=== PATIENT | female | born 1965 | race Caucasian/White ===

== ENCOUNTER 2019-07-24 06:43 | Emergency (ER) | payer BC ==
[~2019-07-24] VITALS: Ht 165.1 cm; Wt 67.8 kg
[2019-07-24 07:46] VITALS: BP 116/74
== END 2019-07-24 07:50 | disposition home or self-care (01) ==
LOC: ER 06:43
DX: M79.671 Pain in right foot (principal); M79.672 Pain in left foot; E78.00 Pure hypercholesterolemia, unspecified; E03.9 Hypothyroidism, unspecified
CPT/HCPCS: 73630; 99284

== ENCOUNTER 2023-01-03 15:33 | Outpatient (CLI) | payer BC | END 2023-01-03 23:59 | disposition home or self-care (01) | LOC: RAD 15:33 | PROVIDERS: ATTEND Nurse Practitioner Family | DX: R40.4 Transient alteration of awareness (principal) | CPT/HCPCS: 95816 ==

== ENCOUNTER 2023-09-09 07:39 | Emergency (ER) | payer BC ==
[~2023-09-09] VITALS: Ht 165.1 cm; Wt 68.2 kg
[2023-09-09 07:48] VITALS: TEMP 97.6
[2023-09-09] MEDS ORDERED: morphine 4 MG/ML inj SYRINge IV ONE (09:00)
[2023-09-09 09:26] LABS: BASOPHILS % (AUTO) 0.5 % (0-1); EOSINOPHILS # (AUTO) 0.2 X10'3 (0-0.9); EOSINOPHILS % (AUTO) 2.6 % (0-6); HEMATOCRIT 39.7 % (35.0-45.0); HEMOGLOBIN 13.7 g/dl (12.0-16.0); LYMPHOCYTES # (AUTO) 1.9 X10'3 (1.1-4.8); LYMPHOCYTES % (AUTO) 22.4 % (21-51); MEAN CORPUSCULAR HEMOGLOBIN 31.6 PG (27.0-31.0); MEAN CORPUSCULAR HGB CONC 34.5 g/dL (33.0-36.5); MEAN CORPUSCULAR VOLUME 91.4 FL (78-98); MEAN PLATELET VOLUME 9.5 FL (7.4-10.4); MONOCYTES # (AUTO) 0.9 X10'3 (0-0.9); MONOCYTES % (AUTO) 10.3 % (2-12); NEUTROPHILS # (AUTO) 5.6 X10'3 (1.8-7.7); NEUTROPHILS % (AUTO) 64.2 % (42-75); PLATELET COUNT 254 X10'3 (140-440); RED BLOOD COUNT 4.34 X10'6 (4.20-5.60); RED CELL DISTRIBUTION WIDTH 14.4 % (11.5-14.5); WHITE BLOOD COUNT 8.7 X10'3 (4.5-11.0)
[2023-09-09 09:28] LABS: ALANINE AMINOTRANSFERASE 31 U/L (12-78); ALBUMIN 4.3 G/DL (3.4-5.0); ALBUMIN/GLOBULIN RATIO 1.3 (1.1-1.5); ALKALINE PHOSPHATASE 63 IU/L (46-116); ANION GAP 9 (8-16); ASPARTATE AMINO TRANSFERASE 17 U/L (10-37); BILIRUBIN,TOTAL 0.4 MG/DL (0.1-1.0); BLOOD UREA NITROGEN 18 MG/DL (7-18); BUN/CREATININE RATIO 15.4 (10.0-20.0); CALCIUM 9.3 MG/DL (8.5-10.1); CHLORIDE 103 MMOL/L (99-107); CREATININE 1.17 MG/DL (0.40-0.90); GLUCOSE 90 MG/DL (70-104); LIPASE 29 U/L (16-77); POTASSIUM 3.9 MMOL/L (3.5-5.1); SODIUM 136 MMOL/L (135-145); TOTAL CARBON DIOXIDE 23.6 MMOL/L (24-32); TOTAL PROTEIN 7.6 G/DL (6.4-8.2); eCRCL 47 ML/MIN; eGFR 48 ML/MIN
[2023-09-09 10:31] VITALS: BP 139/101; PULSE 86; RESP 18; O2SAT 100
[2023-09-09] MEDS ORDERED: LidoCAINE 2% Topical Jelly 11mL syringe TOP ONE (11:15)
[2023-09-09] MEDS ORDERED: magnesium citrate 296ml oral solution PO ONE (11:15)
[2023-09-09] MEDS ORDERED: lactulose 20gm/30ml cup PO ONE (11:50)
--- NOTE | 2023-09-09 12:13 | NUR ---
I asked Dr. Stout if we can give patient some IV fluid, he said no fluid
[2023-09-09 12:26] LABS: BILIRUBIN,URINE NEGATIVE (Neg); CLARITY,URINE CLEAR (Clear); COLOR,URINE YELLOW (Yellow); GLUCOSE, URINE 500 mg/dl (Neg); KETONES,URINE NEGATIVE (Neg); LEUKOCYTE ESTERASE ,URINE NEGATIVE (Neg); NITRITES, URINE NEGATIVE (Neg); OCCULT BLOOD,URINE NEGATIVE (Neg); PROTEIN,URINE NEGATIVE (Neg); UROBILINOGEN,URINE 0.2 E.U/dL (0.2-1.0)
[2023-09-09 12:30] LABS: UA COLLECTION TYPE FOLEY CATH
[2023-09-09] MEDS ORDERED: docusate sodium 100mg/10ml UD cup PO SCH (12:40)
[2023-09-09] MEDS ORDERED: docusate sodium 100mg/10ml UD cup PO ONE (12:40)
[2023-09-09] MEDS ORDERED: phenazopyridine 100mg tablet PO ONE (14:20)
[2023-09-09] MEDS ORDERED: morphine 2 MG/ML inj. syringe IV ONE (14:20)
[2023-09-09] MEDS ORDERED: LIDOcaine 2% 10ml TOPICAL JELLY (Urojet) MM ONE (14:25)
[2023-09-09] MEDS ORDERED: LidoCAINE 2% Topical Jelly 11mL syringe MM ONE (14:30)
[2023-09-09] MEDS ORDERED: mineral oil 133ml enema RC PRN (14:45)
[2023-09-09] MEDS ORDERED: normal saline 1000ml 1,000 ML IV ONE (15:55)
--- NOTE | 2023-09-09 16:20 | NUR ---
Hager catheter removed per Dr. Stout. Patient finally had a large BM after the enema was given. NS 1L bolus infusing
== END 2023-09-09 17:21 | disposition home or self-care (01) ==
LOC: ER 07:40
DX: K59.00 Constipation, unspecified (principal); R33.9 Retention of urine, unspecified; K64.9 Unspecified hemorrhoids; E78.00 Pure hypercholesterolemia, unspecified; E03.9 Hypothyroidism, unspecified; F32.9 Major depressive disorder, single episode, unspecified; N18.9 Chronic kidney disease, unspecified; Z72.89 Other problems related to lifestyle
CPT/HCPCS: 36415; 80053; 81003; 83690; 85025; 96361; 96374; 96376; 99284; J2270; J7030; A4314